=== PATIENT | male | born 1935 | race Caucasian/White ===

== ENCOUNTER 2016-11-18 10:06 | Inpatient (IN) | payer OTHER, MEDICARE ==
[2016-11-18] MEDS ORDERED: SODIUM CHLORIDE 0.9% 1,000 ML IV ONE (10:27)
--- NOTE | 2016-11-18 10:56 | XR ---
EXAMINATION TYPE: XR chest 1V portable DATE OF EXAM: 11/18/2016 COMPARISON: 11/18/2016 HISTORY: Shortness of breath and chest pain TECHNIQUE: Single frontal view of the chest is obtained. FINDINGS: Subsegmental changes at the left lung base. Heart enlarged. Atherosclerotic change aorta. Arthropathy of the shoulders and diffuse osteopenia. Underlying COPD noted. Tiny right pleural effusi on suspected. IMPRESSION: 1. Tiny bilateral effusion and basilar atelectasis or early infiltrate stable. 2. Correlate for COPD.
[2016-11-18 11:00] LABS: CH 30.7; CHCM 33.6; HDW 2.79; HGB 13.4 gm/dL (13.0-17.5); Immature Gran Flag Marked; MCH 30.9 pg (25.0-35.0); MCHC 33.5 g/dL (31.0-37.0); MCV 92.1 fL (80.0-100.0); Mean Platelet Volume 7.8; RBC 4.34 m/uL (4.30-5.90); RDW 14.7 % (11.5-15.5); WBC (Perox) 32.62
[2016-11-18] MEDS ORDERED: CEFEPIME 2 GM in SODIUM CHLORIDE 0.9% 50 ML IVPB STA (11:01)
[2016-11-18] MEDS ORDERED: IV VANCOMYCIN PER PHARMACY 1 EACH MISC MISCELLANE PRN (11:01)
[2016-11-18 11:07] LABS: Calcium 7.5 mg/dL (8.4-10.2); Total Bilirubin 0.6 mg/dL (0.2-1.3); Total Protein 5.8 g/dL (6.3-8.2)
[2016-11-18 11:12] LABS: WBC 31.3 k/uL (3.8-10.6)
[2016-11-18 11:14] LABS: Potassium 2.8 mmol/L (3.5-5.1)
[2016-11-18] MEDS: SODIUM CHLORIDE 0.9% 1,000 ML IV SCH ×2 (11:27→20:12)
[2016-11-18] MEDS ORDERED: VANCOMYCIN 2,250 MG in SODIUM CHLORIDE 0.9% 500 ML IVPB ONE (11:30)
[2016-11-18 11:31] LABS: Add Differential Manual Differential
[2016-11-18 11:35] LABS: Band Neutrophils % 13 %; Manual Review Performed; Metamyelocytes % 1 %; Nucleated Red Blood Cells 0 /100 WBC (0-0); Total Cells Counted 200; Toxic Granulation Present
[2016-11-18] MEDS ORDERED: ACETAMINOPHEN TAB 325 MG TAB PO PRN (12:01)
[2016-11-18] MEDS ORDERED: NALOXONE 0.4 MG/ML 1 ML VIAL IV PRN (12:01)
--- NOTE | 2016-11-18 12:01 | ED ---
General Adult HPI - General Chief complaint: Fever Stated complaint: Sepsis Time Seen by Provider: 11/18/16 10:18 Source: patient, EMS, RN notes reviewed Mode of arrival: EMS Limitations: no limitations - History of Present Illness Initial comments: 81-year-old male transferred with presumed UTI with sepsis. Patient had fever 104, he was found to have an elevated white blood cell count 20,000, hypotensive at transferring facility 80/50. Mild lactic acidosis 2.1. Patient did have hypokalemia 2.4 he received 40 units prior to transfer. Patient is unable to give history. He has no complaints. Does have history of dementia. He was given 1 g Rocephin prior to transfer. Total of 2.5 L of saline given with a third liter hanging at the time of arrival. - Related Data Allergies Allergy/AdvReac Type Severity Reaction Status Date / Time No Known Allergies Allergy Verified 11/18/16 10:25 Review of Systems ROS Statement: Those systems with pertinent positive or pertinent negative responses have been documented in the HPI. ROS Other: All systems not noted in ROS Statement are negative. Past Medical History Past Medical History: No Reported History Additional Past Medical History / Comment(s): patient unsure History of Any Multi-Drug Resistant Organisms: None Reported Past Surgical History: No Surgical Hx Reported Additional Past Surgical History / Comment(s): patient unsure Past Psychological History: No Psychological Hx Reported Smoking Status: Never smoker Past Alcohol Use History: Occasional General Exam Limitations: no limitations General appearance: alert, in no apparent distress Head exam: Present: atraumatic, normocephalic Eye exam: Present: normal appearance, PERRL ENT exam: Present: mucous membranes dry Neck exam: Present: full ROM. Absent: meningismus Respiratory exam: Present: normal lung sounds bilaterally. Absent: respiratory distress Cardiovascular Exam: Present: regular rate, normal rhythm GI/Abdominal exam: Present: soft. Absent: distended, tenderness, guarding Extremities exam: Present: normal inspection, normal capillary refill. Absent: pedal edema Neurological exam: Present: alert. Absent: motor sensory deficit Psychiatric exam: Present: normal affect, normal mood Skin exam: Present: warm, dry, intact. Absent: cyanosis, diaphoretic Course Vital Signs 11/18/16 11/18/16 11/18/16 10:08 10:48 10:59 Temperature 98.8 F Pulse Rate 94 65 61 Respiratory 20 18 18 Rate Blood Pressure 80/48 84/52 99/62 O2 Sat by Pulse 95 96 96 Oximetry 11/18/16 11:34 Temperature Pulse Rate 64 Respiratory 18 Rate Blood Pressure 114/61 O2 Sat by Pulse 96 Oximetry - Reevaluation(s) Reevaluation #1: 11/18/16 11:59 Patient will pressure improves with IV hydration. Mental status unchanged throughout stay in the emergency department Medical Decision Making - Medical Decision Making 81-year-old man transferred with presumed UTI and sepsis. Urinalysis did show 20 white blood cells and leukocyte esterase. Patient's blood pressure was initially 80/50. White blood cell count prior to transfer was 19,000. Repeat white blood cell count 31,000, potassium is 2.8 after replacement, and additional 40 mEq is ordered. Creatinine stable at 1.8. Lactic acid is improved 1.6 from 2.2. Patient received an additional liter of IV hydration. He is started on broad-spectrum antibiotics including cefepime and vancomycin. Blood pressure improves, most recent 114 systolic. Patient will be admitted for further treatment. Diagnosis: UTI with sepsis first clinical pneumonia with sepsis. Hypokalemia - Lab Data Result diagrams: 11/18/16 10:30 11/18/16 10:30 Lab Results 11/18/16 11/18/16 11/18/16 Range/Units 10:30 10:30 10:30 WBC 31.3 H* (3.8-10.6) k/uL RBC 4.34 (4.30-5.90) m/uL Hgb 13.4 (13.0-17.5) gm/dL Hct 40.0 (39.0-53.0) % MCV 92.1 (80.0-100.0) fL MCH 30.9 (25.0-35.0) pg MCHC 33.5 (31.0-37.0) g/dL RDW 14.7 (11.5-15.5) % Plt Count 211 (150-450) k/uL Neutrophils % (Manual) 80 % Band Neutrophils % 13 % Lymphocytes % (Manual) 2 % Monocytes % (Manual) 6 % Metamyelocytes % 1 % Neutrophils # (Manual) 29.10 H (1.3-7.7) k/uL Lymphocytes # (Manual) 0.63 L (1.0-4.8) k/uL Monocytes # (Manual) 1.88 H (0-1.0) k/uL Metamyelocytes # (Man) 0.31 H (0) k/uL Nucleated RBCs 0 (0-0) /100 WBC Manual Slide Review Performed Toxic Granulation Present Poikilocytosis (manual Present Sodium 139 (137-145) mmol/L Potassium 2.8 L* (3.5-5.1) mmol/L Chloride 104 (98-107) mmol/L Carbon Dioxide 26 (22-30) mmol/L Anion Gap 9 mmol/L BUN 24 H (9-20) mg/dL Creatinine 1.79 H (0.66-1.25) mg/dL Est GFR (MDRD) Af Amer 45 (>60 ml/min/1.73 sqM) Est GFR (MDRD) Non-Af 37 (>60 ml/min/1.73 sqM) Glucose 98 (74-99) mg/dL Plasma Lactic Acid Faraz 1.6 (0.7-2.0) mmol/L Calcium 7.5 L (8.4-10.2) mg/dL Magnesium (1.6-2.3) mg/dL Total Bilirubin 0.6 (0.2-1.3) mg/dL AST 71 H (17-59) U/L ALT 49 (21-72) U/L Alkaline Phosphatase 87 (38-126) U/L Total Protein 5.8 L (6.3-8.2) g/dL Albumin 2.6 L (3.5-5.0) g/dL 11/18/16 Range/Units 10:30 WBC (3.8-10.6) k/uL RBC (4.30-5.90) m/uL Hgb (13.0-17.5) gm/dL Hct (39.0-53.0) % MCV (80.0-100.0) fL MCH (25.0-35.0) pg MCHC (31.0-37.0) g/dL RDW (11.5-15.5) % Plt Count (150-450) k/uL Neutrophils % (Manual) % Band Neutrophils % % Lymphocytes % (Manual) % Monocytes % (Manual) % Metamyelocytes % % Neutrophils # (Manual) (1.3-7.7) k/uL Lymphocytes # (Manual) (1.0-4.8) k/uL Monocytes # (Manual) (0-1.0) k/uL Metamyelocytes # (Man) (0) k/uL Nucleated RBCs (0-0) /100 WBC Manual Slide Review Toxic Granulation Poikilocytosis (manual Sodium (137-145) mmol/L Potassium (3.5-5.1) mmol/L Chloride (98-107) mmol/L Carbon Dioxide (22-30) mmol/L Anion Gap mmol/L BUN (9-20) mg/dL Creatinine (0.66-1.25) mg/dL Est GFR (MDRD) Af Amer (>60 ml/min/1.73 sqM) Est GFR (MDRD) Non-Af (>60 ml/min/1.73 sqM) Glucose (74-99) mg/dL Plasma Lactic Acid Faraz (0.7-2.0) mmol/L Calcium (8.4-10.2) mg/dL Magnesium 1.7 (1.6-2.3) mg/dL Total Bilirubin (0.2-1.3) mg/dL AST (17-59) U/L ALT (21-72) U/L Alkaline Phosphatase (38-126) U/L Total Protein (6.3-8.2) g/dL Albumin (3.5-5.0) g/dL Critical Care Time Critical Care Time: Yes Total Critical Care Time: 45 Disposition Clinical Impression: Hypokalemia, Sepsis Disposition: ADMITTED IP TO THIS [facility] Condition: Stable Referrals: None,Stated [Primary Care Provider] - 1-2 days Decision to Admit Reason: Admit from EC Decision Date: 11/11/16 Decision Time: 12:01
[2016-11-18] MEDS: POTASSIUM CHLORIDE 10 MEQ, LIDOCAINE 2% INJ 10 MG in SODIUM CHLORIDE 0.9% 100 ML IVPB SCH ×4 (12:36→17:12)
[2016-11-18] MEDS: CEFEPIME 2 GM in SODIUM CHLORIDE 0.9% 50 ML IVPB SCH (19:07)
[2016-11-19 00:07] LABS: CH 30.5; CHCM 33.2; HCT 37.4 % (39.0-53.0); HDW 2.88; HGB 12.1 gm/dL (13.0-17.5); MCH 29.8 pg (25.0-35.0); MCHC 32.2 g/dL (31.0-37.0); MCV 92.5 fL (80.0-100.0); Mean Platelet Volume 7.9; RBC 4.04 m/uL (4.30-5.90); RDW 14.5 % (11.5-15.5)
[2016-11-19] MEDS: CEFEPIME 2 GM in SODIUM CHLORIDE 0.9% 50 ML IVPB SCH ×3 (00:12→20:38)
[2016-11-19] MEDS: MEMANTINE 10 MG TAB PO SCH ×3 (00:13→20:35)
[2016-11-19] MEDS: SERTRALINE 50 MG TAB PO SCH ×2 (00:13→20:35)
[2016-11-19] MEDS: ATORVASTATIN 10 MG TAB PO SCH ×2 (00:13→20:35)
[2016-11-19 00:14] LABS: WBC 28.7 k/uL (3.8-10.6)
[2016-11-19 00:18] LABS: Calcium 7.7 mg/dL (8.4-10.2); Magnesium 1.8 mg/dL (1.6-2.3)
[2016-11-19 00:19] LABS: Potassium 3.1 mmol/L (3.5-5.1)
--- NOTE | 2016-11-19 00:33 | P.HPIM ---
History of Present Illness H&P Date: 11/18/16 Chief Complaint: Fever and UTI transferred from outside hospital 81-year-old male with a known history of DEMENTIA Alzheimer's, history of renal cancer and heart wall replacement as well as splenectomy transferred with presumed UTI with sepsis. Patient was found to have fever at home by his daughter. Patient had fever 104. Patient was initially taken to outside hospital and was found to have acute urinary tract infection. Patient also having cough for the past 2 days with whitish to green sputum production. Patient does have urinary incontinence history. Patient was found to have an elevated white blood cell count 20,000, hypotensive at transferring facility 80/50. Mild lactic acidosis 2.1. Patient did have hypokalemia 2.4 he received 40 units prior to transfer. Patient is unable to give history due to underlying dementia. He has no complaints. He was given 1 g Rocephin prior to transfer. Total of 2.5 L of saline given with a third liter hanging at the time of arrival. Urine cultures were sent at that facility. Chest x-ray showed no acute process. But due to patient's cough and fever possible pneumonia was suspected as well. Patient was started on antibiotics. Social history was taken from his at bedside and his daughter. Review of Systems Complete review of systems could not be obtained from the patient Past Medical History Past Medical History: Cancer, Dementia, Hyperlipidemia, Hypertension, Thyroid Disorder Additional Past Medical History / Comment(s): Pt has hx of HTN but was taken off htn medication after having his aortic valve replaced, L kidney cancer with surgery, hypothyroid. History of Any Multi-Drug Resistant Organisms: None Reported Past Surgical History: No Surgical Hx Reported Additional Past Surgical History / Comment(s): 08/2015 Aortic valve replaced at [facility] in [place], L nephrectomy, spleenectomy, colonoscopies. Past Anesthesia/Blood Transfusion Reactions: No Reported Reaction Smoking Status: Never smoker - Past Family History Father Additional Family Medical History / Comment(s): Father during surgery for gastric ulcer repair at the age of 52yrs. Mother Family Medical History: CVA/TIA, Thyroid Disorder Additional Family Medical History / Comment(s): Mother had heart problems, hypothyroid, and of a massive CVA at the age of 72 yrs. Medications and Allergies Home Medications Medication Instructions Recorded Confirmed Type Aspirin 81 mg PO DAILY 11/18/16 11/18/16 History Donepezil [Aricept] 10 mg PO DAILY 11/18/16 11/18/16 History Hydrochlorothiazide [Hydrodiuril] 25 mg PO DAILY 11/18/16 11/18/16 History Levothyroxine Sodium [Synthroid] 75 mcg PO DAILY 11/18/16 11/18/16 History Memantine [Namenda] 10 mg PO BID 11/18/16 11/18/16 History Sertraline HCl [Zoloft] 50 mg PO HS 11/18/16 11/18/16 History Simvastatin 20 mg PO HS 11/18/16 11/18/16 History Allergies Allergy/AdvReac Type Severity Reaction Status Date / Time No Known Allergies Allergy Verified 11/18/16 13:15 Physical Exam Vitals: Vital Signs Temp Pulse Resp BP Pulse Ox 11/18/16 21:14 97.6 F 57 L 18 100/58 96 11/18/16 20:11 53 L 18 100/60 97 11/18/16 19:09 56 L 18 105/58 96 11/18/16 18:08 91 18 100/54 96 11/18/16 17:08 97.0 F L 55 L 16 102/58 96 11/18/16 15:46 56 L 18 109/60 95 11/18/16 14:35 98.0 F 55 L 18 119/53 95 11/18/16 13:16 98.2 F 60 18 117/69 95 11/18/16 12:41 62 18 131/63 95 11/18/16 11:34 64 18 114/61 96 11/18/16 10:59 61 18 99/62 96 11/18/16 10:48 65 18 84/52 96 11/18/16 10:08 98.8 F 94 20 80/48 95 Intake and Output 11/18/16 11/18/16 11/18/16 06:59 14:59 22:59 Output Total 250 Balance -250 Output: Urine 250 Other: Weight 122.924 kg Patient Weight 11/19/16 06:59 Weight 122.924 kg PHYSICAL EXAMINATION: Patient is lying in the bed comfortably, no acute distress, awake alert ... HEENT: Normocephalic. Neck is supple. Pupils reactive. Nostrils clear. Oral cavity is moist. Ears reveal no drainage. Neck reveals no JVD, carotid bruits, or thyromegaly. CHEST EXAMINATION: Trachea is central. Symmetrical expansion. Lung stevens clear to auscultation and percussion. Minimal rhonchi positive CARDIAC: Normal S1, S2 with no gallops. No murmurs ABDOMEN: Soft. Bowel sounds normal. No organomegaly. No abdominal bruits. Extremities reveal no edema. No clubbing or cyanosis Neurologically awake, alert with well-coordinated movements. Patient does have underlying dementia Skin: no rash or skin lesions Musculoskeletal: no joint swelling or deformity. Results CBC & Chem 7: 11/18/16 23:39 11/18/16 10:30 Labs: Abnormal Lab Results - Last 24 Hours (Table) 11/18/16 11/18/16 Range/Units 10:30 10:30 WBC 31.3 H* (3.8-10.6) k/uL Neutrophils # (Manual) 29.10 H (1.3-7.7) k/uL Lymphocytes # (Manual) 0.63 L (1.0-4.8) k/uL Monocytes # (Manual) 1.88 H (0-1.0) k/uL Metamyelocytes # (Man) 0.31 H (0) k/uL Potassium 2.8 L* (3.5-5.1) mmol/L BUN 24 H (9-20) mg/dL Creatinine 1.79 H (0.66-1.25) mg/dL Calcium 7.5 L (8.4-10.2) mg/dL AST 71 H (17-59) U/L Total Protein 5.8 L (6.3-8.2) g/dL Albumin 2.6 L (3.5-5.0) g/dL Microbiology - Last 24 Hours (Table) 11/18/16 10:32 Urine Culture - Preliminary Urine,Catheterized Thrombosis Risk Factor Assmnt - DVT/VTE Prophylaxis DVT/VTE Prophylaxis: Pharmacologic Prophylaxis ordered - Choose All That Apply Any of the Below Risk Factors Present?: Yes Each Factor Represents 1 point: Medical pt on bed rest, Obesity (BMI >25), Sepsis (< 1month) Other Risk Factors: Yes Each Risk Factor Represents 2 Points: Malignancy Each Risk Factor Represents 3 Points: Age 75 years or older Other congenital or acquired thrombophilia - If yes, enter type in comment: No Thrombosis Risk Factor Assessment Total Risk Factor Score: 8 Thrombosis Risk Factor Assessment Level: High Risk Assessment and Plan Plan: #1 severe sepsis secondary to urinary tract infection. Lactic acidosis improved #2 possible pneumonia #3 significant leukocytosis #3 acute kidney injury most likely prerenal #4 severe hypokalemia and hypomagnesemia on admission #4 history of urinary incontinence #5 Alzheimer's dementia #6 history of renal cancer and splenectomy. Currently solitary kidney #7 history of aortic valve replacement #8 DVT prophylaxis with heparin subcu Plan: Patient will be continued on IV fluids and broad-spectrum antibiotics in the form of vancomycin and cefepime. Follow up blood cultures and urine cultures. Continue to replace electrolyte. And continue to follow closely. prognosis is guarded. further recommendations based on the clinical course. Time with Patient: Greater than 30
[2016-11-19] MEDS ORDERED: Potassium Replacement Protocol 1 EACH MISC MISCELLANE PRN ×2 (03:00→07:49)
[2016-11-19] MEDS ORDERED: POTASSIUM CHLORIDE ER 20 MEQ TAB.ER PO SCH (03:00)
[2016-11-19] MEDS: SODIUM CHLORIDE 0.9% 1,000 ML IV SCH ×3 (03:54→12:28)
[2016-11-19] MEDS: LEVOTHYROXINE 75 MCG TAB PO SCH (06:29)
[2016-11-19 06:45] LABS: Basophils # (A) 0.1 k/uL (0-0.2); Basophils % (A) 1 %; CH 30.2; CHCM 32.4; Eosinophils # (A) 0.1 k/uL (0-0.7); Eosinophils % (A) 1 %; HCT 37.3 % (39.0-53.0); HDW 2.88; Luc % (Auto) 2; Lymphocytes # (A) 1.9 k/uL (1.0-4.8); Lymphocytes % (A) 8 %; MCH 30.2 pg (25.0-35.0); MCHC 32.2 g/dL (31.0-37.0); MCV 93.9 fL (80.0-100.0); Mean Platelet Volume 8.3; Monocytes # (A) 1.7 k/uL (0-1.0); Monocytes % (A) 7 %; Neutrophils % (A) 82 %; RBC 3.97 m/uL (4.30-5.90); RDW 14.5 % (11.5-15.5); WBC 24.3 k/uL (3.8-10.6); WBC (Perox) 24.48
[2016-11-19 07:00] LABS: Calcium 7.7 mg/dL (8.4-10.2); Potassium 3.3 mmol/L (3.5-5.1); Total Bilirubin 0.3 mg/dL (0.2-1.3); Total Protein 5.5 g/dL (6.3-8.2)
[2016-11-19] MEDS: ASPIRIN 81 MG PO SCH (08:49)
[2016-11-19] MEDS: HEPARIN SODIUM,PORCINE 5,000 UNIT/ML 1 ML VIAL SQ SCH ×3 (08:49→23:18)
[2016-11-19] MEDS: POTASSIUM CHLORIDE ER 20 MEQ TAB.ER PO SCH ×2 (08:49→12:16)
[2016-11-19] MEDS: VANCOMYCIN 2,000 MG in SODIUM CHLORIDE 0.9% 500 ML IVPB SCH (12:28)
--- NOTE | 2016-11-19 23:23 | P.PN ---
Subjective Principal diagnosis: Sepsis secondary to urinary tract infection 81-year-old male with a known history of DEMENTIA Alzheimer's, history of renal cancer and heart wall replacement as well as splenectomy transferred with presumed UTI with sepsis. Patient was found to have fever at home by his daughter. Patient had fever 104. Patient was initially taken to outside hospital and was found to have acute urinary tract infection. Patient also having cough for the past 2 days with whitish to green sputum production. Patient does have urinary incontinence history. Patient was found to have an elevated white blood cell count 20,000, hypotensive at transferring facility 80/50. Mild lactic acidosis 2.1. Patient did have hypokalemia 2.4 he received 40 units prior to transfer. Patient is unable to give history due to underlying dementia. He has no complaints. He was given 1 g Rocephin prior to transfer. Total of 2.5 L of saline given with a third liter hanging at the time of arrival. Urine cultures were sent at that facility. Chest x-ray showed no acute process. But due to patient's cough and fever possible pneumonia was suspected as well. Patient was started on antibiotics. Social history was taken from his at bedside and his daughter. On 11/19/2016 Patient is more awake today but could not provide history due to underlying dementia. Leukocytosis improved 24.3. Hypokalemia improved as well. Lactic is ptosis improved as well. Blood cultures and urine cultures show no growth so far. T-max was 98.8. No complaints of chest pain or worsening short of breath. Current medications reviewed. Objective - Vital Signs Vital signs: Vital Signs Temp 97.4 F L 11/19/16 16:00 Pulse 66 11/19/16 16:00 Resp 18 11/19/16 04:00 BP 110/61 11/19/16 16:00 Pulse Ox 95 11/19/16 16:00 Intake & Output 11/19/16 11/19/16 11/20/16 06:59 18:59 06:59 Intake Total 1150 2152 Output Total 525 Balance 625 2152 Weight 118 kg Intake: Intake, IV Titration 550 1500 Amount Cefepime 2 gm In Sodium 100 Chloride 0.9% 50 ml @ 100 mls/hr IVPB Q8HR [facility] Rx# :[id number] Sodium Chloride 0.9% 1, 450 1000 000 ml @ 150 mls/hr IV . Q6H40M [facility] Rx#:[id number] Vancomycin 2,000 mg In 500 Sodium Chloride 0.9% 500 ml @ 167 mls/hr IVPB Q48H [facility] Rx#:[id number] Oral 600 652 Output: Urine 525 Other: Voiding Method Indwelling Catheter Indwelling Catheter - Exam Patient is lying in the bed comfortably, no acute distress, awake alert ... HEENT: Normocephalic. Neck is supple. Pupils reactive. Nostrils clear. Oral cavity is moist. Ears reveal no drainage. Neck reveals no JVD, carotid bruits, or thyromegaly. CHEST EXAMINATION: Trachea is central. Symmetrical expansion. Lung stevens clear to auscultation and percussion. Minimal rhonchi and basilar crackles positive CARDIAC: Normal S1, S2 with no gallops. No murmurs ABDOMEN: Soft. Bowel sounds normal. No organomegaly. No abdominal bruits. Extremities reveal no edema. No clubbing or cyanosis Neurologically awake, alert with well-coordinated movements. Patient does have underlying dementia Skin: no rash or skin lesions Musculoskeletal: no joint swelling or deformity. - Labs CBC & Chem 7: 11/19/16 06:06 11/19/16 06:02 Labs: Abnormal Lab Results - Last 24 Hours (Table) 11/18/16 11/18/16 11/19/16 Range/Units 23:39 23:39 00:47 WBC 28.7 H* (3.8-10.6) k/uL RBC 4.04 L (4.30-5.90) m/uL Hgb 12.1 L (13.0-17.5) gm/dL Hct 37.4 L (39.0-53.0) % Neutrophils # (1.3-7.7) k/uL Monocytes # (0-1.0) k/uL Potassium 3.1 L 3.2 L (3.5-5.1) mmol/L Chloride 109 H (98-107) mmol/L Carbon Dioxide (22-30) mmol/L BUN 25 H (9-20) mg/dL Creatinine 1.50 H (0.66-1.25) mg/dL Glucose 105 H (74-99) mg/dL Calcium 7.7 L (8.4-10.2) mg/dL AST (17-59) U/L Total Protein (6.3-8.2) g/dL Albumin (3.5-5.0) g/dL 11/19/16 11/19/16 Range/Units 06:02 06:06 WBC 24.3 H (3.8-10.6) k/uL RBC 3.97 L (4.30-5.90) m/uL Hgb 12.0 L (13.0-17.5) gm/dL Hct 37.3 L (39.0-53.0) % Neutrophils # 20.0 H (1.3-7.7) k/uL Monocytes # 1.7 H (0-1.0) k/uL Potassium 3.3 L (3.5-5.1) mmol/L Chloride 110 H (98-107) mmol/L Carbon Dioxide 21 L (22-30) mmol/L BUN 25 H (9-20) mg/dL Creatinine 1.50 H (0.66-1.25) mg/dL Glucose 111 H (74-99) mg/dL Calcium 7.7 L (8.4-10.2) mg/dL AST 71 H (17-59) U/L Total Protein 5.5 L (6.3-8.2) g/dL Albumin 2.4 L (3.5-5.0) g/dL Microbiology - Last 24 Hours (Table) 11/18/16 10:32 Urine Culture - Final Urine,Catheterized 11/18/16 10:30 Blood Culture - Preliminary Blood No Growth after 24 hours Assessment and Plan Plan: #1 severe sepsis secondary to urinary tract infection. Lactic acidosis improved #2 possible pneumonia #3 significant leukocytosis #3 acute kidney injury most likely prerenal #4 severe hypokalemia and hypomagnesemia on admission #4 history of urinary incontinence #5 Alzheimer's dementia #6 history of renal cancer and splenectomy. Currently solitary kidney #7 history of aortic valve replacement #8 DVT prophylaxis with heparin subcu Plan: Patient will be continued on broad-spectrum antibiotics in the form of vancomycin and cefepime. Will hold IV fluids as the patient is tolerating well by mouth diet. Follow up blood cultures and urine cultures. Continue to replace electrolyte. And continue to follow closely. prognosis is guarded. Discussed with his at bedside. further recommendations based on the clinical course. Time with Patient: Greater than 30
[2016-11-20] MEDS ORDERED: POTASSIUM CHLORIDE ER 20 MEQ TAB.ER PO SCH (04:00)
[2016-11-20] MEDS: LEVOTHYROXINE 75 MCG TAB PO SCH (05:52)
[2016-11-20 07:04] LABS: Calcium 8.3 mg/dL (8.4-10.2); Potassium 4.2 mmol/L (3.5-5.1)
[2016-11-20 07:48] LABS: Basophils # (A) 0.1 k/uL (0-0.2); Basophils % (A) 0 %; CH 29.5; CHCM 30.9; Eosinophils # (A) 0.3 k/uL (0-0.7); Eosinophils % (A) 2 %; HCT 39.4 % (39.0-53.0); HDW 2.78; HGB 12.5 gm/dL (13.0-17.5); Hypochromasia Moderate; Luc # (Auto) 0.51; Luc % (Auto) 3; Lymphocytes # (A) 1.8 k/uL (1.0-4.8); Lymphocytes % (A) 11 %; MCH 30.6 pg (25.0-35.0); MCHC 31.8 g/dL (31.0-37.0); MCV 96.2 fL (80.0-100.0); Mean Platelet Volume 7.8; Monocytes # (A) 1.1 k/uL (0-1.0); Monocytes % (A) 7 %; Neutrophils # (A) 12.2 k/uL (1.3-7.7); Neutrophils % (A) 76 %; RDW 14.2 % (11.5-15.5); WBC (Perox) 16.59
[2016-11-20] MEDS: CEFEPIME 2 GM in SODIUM CHLORIDE 0.9% 50 ML IVPB SCH ×2 (10:08→22:19)
[2016-11-20] MEDS: ASPIRIN 81 MG PO SCH (10:08)
[2016-11-20] MEDS: HEPARIN SODIUM,PORCINE 5,000 UNIT/ML 1 ML VIAL SQ SCH ×2 (10:08→18:55)
[2016-11-20] MEDS: MEMANTINE 10 MG TAB PO SCH ×2 (10:08→22:19)
[2016-11-20] MEDS ORDERED: HEPARIN SODIUM,PORCINE 5,000 UNIT/ML 1 ML VIAL IV ONE (17:59)
[2016-11-20] MEDS ORDERED: HEPARIN SODIUM,PORCINE 5,000 UNIT/ML 1 ML VIAL IV PRN (17:59)
[2016-11-20] MEDS ORDERED: DILTIAZEM 125 MG in SODIUM CHLORIDE 0.9% 100 ML IV SCH (18:00)
[2016-11-20] MEDS ORDERED: HEPARIN SODIUM,PORCINE/D5W PMX 25,000 UNIT in DEXTROSE/WATER 1 500ML.BAG IV SCH (18:00)
[2016-11-20 18:51] LABS: Basophils # (A) 0.1 k/uL (0-0.2); Basophils % (A) 1 %; CH 30.4; Eosinophils # (A) 0.4 k/uL (0-0.7); Eosinophils % (A) 3 %; HCT 41.4 % (39.0-53.0); HDW 2.89; HGB 12.9 gm/dL (13.0-17.5); Hypochromasia Slight; Luc % (Auto) 3; Lymphocytes # (A) 1.8 k/uL (1.0-4.8); Lymphocytes % (A) 12 %; MCH 29.8 pg (25.0-35.0); MCHC 31.2 g/dL (31.0-37.0); MCV 95.6 fL (80.0-100.0); Mean Platelet Volume 8.1; Monocytes % (A) 7 %; Neutrophils # (A) 10.9 k/uL (1.3-7.7); Neutrophils % (A) 75 %; RBC 4.33 m/uL (4.30-5.90); RDW 14.7 % (11.5-15.5); WBC 14.6 k/uL (3.8-10.6); WBC (Perox) 14.56
[2016-11-20] MEDS: DILTIAZEM 125 MG in SODIUM CHLORIDE 0.9% 100 ML IV SCH (18:56)
[2016-11-20 19:01] LABS: INR 1.1 (<1.2); Prothrombin Time 10.9 sec (9.0-12.0)
[2016-11-20] MEDS: SERTRALINE 50 MG TAB PO SCH (22:19)
[2016-11-20] MEDS: ATORVASTATIN 10 MG TAB PO SCH (22:19)
[2016-11-21] MEDS: DILTIAZEM 125 MG in SODIUM CHLORIDE 0.9% 100 ML IV SCH (04:42)
[2016-11-21 06:10] LABS: Basophils # (A) 0.1 k/uL (0-0.2); Basophils % (A) 1 %; CH 29.6; CHCM 31.3; Eosinophils # (A) 0.5 k/uL (0-0.7); Eosinophils % (A) 4 %; HCT 39.5 % (39.0-53.0); HDW 2.89; HGB 12.6 gm/dL (13.0-17.5); Hypochromasia Slight; Luc # (Auto) 0.45; Luc % (Auto) 3; Lymphocytes # (A) 1.9 k/uL (1.0-4.8); Lymphocytes % (A) 14 %; MCH 30.2 pg (25.0-35.0); MCHC 31.8 g/dL (31.0-37.0); MCV 95.2 fL (80.0-100.0); Mean Platelet Volume 7.7; Monocytes # (A) 0.9 k/uL (0-1.0); Monocytes % (A) 6 %; Neutrophils # (A) 9.4 k/uL (1.3-7.7); Neutrophils % (A) 71 %; RBC 4.15 m/uL (4.30-5.90); RDW 14.4 % (11.5-15.5); WBC 13.2 k/uL (3.8-10.6); WBC (Perox) 13.45
[2016-11-21] MEDS: LEVOTHYROXINE 75 MCG TAB PO SCH (06:26)
[2016-11-21 06:36] LABS: Manual Review Performed
--- NOTE | 2016-11-21 09:01 | P.CRDCN ---
History of Present Illness Consult date: 11/21/16 History of present illness: This is a pleasant 81-year-old gentleman with no prior cardiac history who was admitted to the hospital with symptoms of fever and dysuria and was diagnosed with UTI/sepsis. We get involved in the care of the patient because during his hospitalization he developed an A. fib with RVR and started on Cardizem drip and converted to normal sinus mechanism. It seems a newly diagnosis atrial fibrillation. The patient according to him never seen any brand ambassador but he has some underlying dementia and he is a poor historian. Currently the patient has been maintaining normal sinus mechanism. He is maintaining normal blood pressure as well. He is on Cardizem IV and heparin IV at this point. I am going to DC the heparin IV and DC the Cardizem IV and start the patient on oral metoprolol as well as oral anticoagulation. We will obtain an echocardiogram was Doppler. And continue following up with him. Past Medical History Past Medical History: Cancer, Dementia, Hyperlipidemia, Hypertension, Thyroid Disorder Additional Past Medical History / Comment(s): Pt has hx of HTN but was taken off htn medication after having his aortic valve replaced, L kidney cancer with surgery, hypothyroid. History of Any Multi-Drug Resistant Organisms: None Reported Past Surgical History: No Surgical Hx Reported Additional Past Surgical History / Comment(s): 08/2015 Aortic valve replaced at [facility] in [place], L nephrectomy, spleenectomy, colonoscopies. Past Anesthesia/Blood Transfusion Reactions: No Reported Reaction Smoking Status: Never smoker - Past Family History Father Additional Family Medical History / Comment(s): Father during surgery for gastric ulcer repair at the age of 52yrs. Mother Family Medical History: CVA/TIA, Thyroid Disorder Additional Family Medical History / Comment(s): Mother had heart problems, hypothyroid, and of a massive CVA at the age of 72 yrs. Medications and Allergies Home Medications Medication Instructions Recorded Confirmed Type Aspirin 81 mg PO DAILY 11/18/16 11/18/16 History Donepezil [Aricept] 10 mg PO DAILY 11/18/16 11/18/16 History Hydrochlorothiazide [Hydrodiuril] 25 mg PO DAILY 11/18/16 11/18/16 History Levothyroxine Sodium [Synthroid] 75 mcg PO DAILY 11/18/16 11/18/16 History Memantine [Namenda] 10 mg PO BID 11/18/16 11/18/16 History Sertraline HCl [Zoloft] 50 mg PO HS 11/18/16 11/18/16 History Atorvastatin [Lipitor] 20 mg PO HS 11/19/16 11/19/16 History Allergies Allergy/AdvReac Type Severity Reaction Status Date / Time No Known Allergies Allergy Verified 11/18/16 13:15 Physical Exam Vitals: Vital Signs Temp Pulse Resp BP Pulse Ox 11/21/16 04:00 97.6 F 67 18 94/59 93 L 11/21/16 00:00 97.1 F L 110 H 18 102/65 93 L 11/20/16 20:40 98.0 F 111 H 18 115/64 93 L 11/20/16 17:08 158 H 18 107/80 94 L 11/20/16 16:00 158 H 18 113/62 94 L 11/20/16 12:00 65 16 105/58 90 L Intake and Output 11/20/16 11/21/16 11/21/16 22:59 06:59 14:59 Intake Total 247 364.336 240 Output Total 400 Balance 247 -35.664 240 Intake: Intake, IV Titration 10 364.336 Amount Diltiazem 125 mg In 10 97.667 Sodium Chloride 0.9% 100 ml @ 10 MG/HR 10 mls/hr IV .[id number] ADRIANA Rx#: [id number] Heparin Sodium,Porcine/ 266.669 D5w Pmx 25,000 unit In Dextrose/Water 1 500ml. bag @ 7.81 UNITS/KG/HR 20 mls/hr IV .Q24H ADRIANA Rx#: [id number] Oral 237 240 Output: Urine 400 Other: Voiding Method Urinal Urinal # Bowel Movements 1 Weight 126.1 kg - Constitutional General appearance: no acute distress - Respiratory Respiratory: bilateral: rales - Cardiovascular Rhythm: regular Heart sounds: normal: S1, S2 Abnormal Heart Sounds: systolic murmur Results 11/21/16 05:52 11/20/16 05:45 Coagulation 11/20/16 11/21/16 11/21/16 Range/Units 18:11 00:12 05:52 PT 10.9 (9.0-12.0) sec APTT 25.0 37.0 H 53.4 H (22.0-30.0) sec CBC 11/20/16 11/21/16 Range/Units 18:11 05:52 WBC 14.6 H 13.2 H (3.8-10.6) k/uL RBC 4.33 4.15 L (4.30-5.90) m/uL Hgb 12.9 L 12.6 L (13.0-17.5) gm/dL Hct 41.4 39.5 (39.0-53.0) % Plt Count 213 228 (150-450) k/uL Current Medications Generic Name Dose Route Start Last Admin Trade Name Freq PRN Reason Stop Dose Admin Acetaminophen 650 mg 11/18/16 12:01 Tylenol Tab PO Q6HR PRN Mild Pain or Fever > 100.5 Apixaban 2.5 mg 11/21/16 09:00 Eliquis PO BID ADRIANA Aspirin 81 mg 11/19/16 09:00 11/20/16 10:08 Aspirin PO 81 mg DAILY ADRIANA Administration Atorvastatin Calcium 10 mg 11/18/16 23:30 11/20/16 22:19 Lipitor PO 10 mg HS ADRIANA Administration Vancomycin HCl 2,000 mg/ 500 mls @ 167 mls/hr 11/19/16 12:00 11/19/16 12:28 Sodium Chloride IVPB 167 mls/hr Q48H ADRIANA Administration Cefepime HCl 2 gm/ Sodium 50 mls @ 100 mls/hr 11/19/16 20:00 11/20/16 22:19 Chloride IVPB 100 mls/hr Q12H ADRIANA Administration Levothyroxine Sodium 75 mcg 11/19/16 06:30 11/21/16 06:26 Synthroid PO 75 mcg 0630 ADRIANA Administration Memantine 10 mg 11/18/16 23:30 11/20/16 22:19 Namenda PO 10 mg BID ADRIANA Administration Metoprolol Tartrate 25 mg 11/21/16 09:00 Lopressor PO BID ADRIANA Miscellaneous Information 1 each 11/19/16 03:00 Potassium Per Protocol MISCELLANE DAILY PRN Per Protocol Protocol Naloxone HCl 0.2 mg 11/18/16 12:01 Narcan IV Q2M PRN Opioid Reversal Sertraline HCl 50 mg 11/18/16 23:30 11/20/16 22:19 Zoloft PO 50 mg HS ADRIANA Administration Intake and Output 11/20/16 11/21/16 11/21/16 22:59 06:59 14:59 Intake Total 247 364.336 240 Output Total 400 Balance 247 -35.664 240 Intake: Intake, IV Titration 10 364.336 Amount Diltiazem 125 mg In 10 97.667 Sodium Chloride 0.9% 100 ml @ 10 MG/HR 10 mls/hr IV .[id number] ADRIANA Rx#: [id number] Heparin Sodium,Porcine/ 266.669 D5w Pmx 25,000 unit In Dextrose/Water 1 500ml. bag @ 7.81 UNITS/KG/HR 20 mls/hr IV .Q24H ADRIANA Rx#: [id number] Oral 237 240 Output: Urine 400 Other: Voiding Method Urinal Urinal # Bowel Movements 1 Weight 126.1 kg 11/21/16 05:52 11/20/16 05:45 Assessment and Plan Plan: This is a pleasant 9-year-old gentleman who was admitted to the hospital with UTI/sepsis and developed an A. fib with RVR and converted to normal sinus mechanism. I am going to DC the heparin IV and DC the Cardizem IV and start the patient on oral metoprolol as well as oral anticoagulation. We will obtain an echocardiogram was Doppler. And continue following up with him.
[2016-11-21] MEDS: MEMANTINE 10 MG TAB PO SCH ×2 (09:07→21:01)
[2016-11-21] MEDS: ASPIRIN 81 MG PO SCH (09:07)
[2016-11-21] MEDS: CEFEPIME 2 GM in SODIUM CHLORIDE 0.9% 50 ML IVPB SCH ×2 (09:09→21:01)
[2016-11-21] MEDS: METOPROLOL TARTRATE 25 MG TAB PO SCH (10:09)
[2016-11-21] MEDS: APIXABAN 2.5 MG TABLET PO SCH ×2 (10:10→21:01)
[2016-11-21] MEDS: VANCOMYCIN 2,000 MG in SODIUM CHLORIDE 0.9% 500 ML IVPB SCH (14:14)
--- NOTE | 2016-11-21 15:32 | ECHOF ---
Referral Reason:a.fib MEASUREMENTS -------- HEIGHT: 172.7 cm WEIGHT: 126.1 kg BP: 113/56 IVSd: 1.2 cm (0.6 - 1.1) LVIDd: 4.3 cm (3.9 - 5.3) LVPWd: 1.4 cm (0.6 - 1.1) IVSs: 1.5 cm LVIDs: 2.2 cm LVPWs: 2.0 cm MV E Gerardo: 1.13 m/s MV DecT: 256 ms MV A Gerardo: 0.67 m/s MV E/A Ratio: 1.68 AV maxP.07 mmHg AV meanP.67 mmHg FINDINGS -------- Atrial fibrillation. This was a technically difficult study with suboptimal views. The left ventricular size is normal. There is mild concentric left ventricular hypertrophy. Overall left ventricular systolic function is normal with, an EF between 55 - 60 %. The RV was not well visualized. The left atrium was not well visualized. The right atrium was not well visualized. 1.5mg of Definity was utilized for enhancement of images Peak/mean gradient across the Aortic Valve is 30.07mmHg / 17.67mmHg. Pt had the TAVR procedure done The mitral valve leaflets are mildly thickened. Mild mitral regurgitation is present. Mild tricuspid regurgitation present. The right ventricular systolic pressure, as measured by Doppler, is {RVSP}. The pulmonic valve was not well visualized. CONCLUSIONS -------- 1. Atrial fibrillation. 2. Peak/mean gradient across the Aortic Valve is 30.07mmHg / 17.67mmHg. 3. Pt had the TAVR procedure done 4. The mitral valve leaflets are mildly thickened. 5. Mild mitral regurgitation is present. 6. Mild tricuspid regurgitation present. 7. The right ventricular systolic pressure, as measured by Doppler, is {RVSP}. 8. The pulmonic valve was not well visualized. 9. This was a technically difficult study with suboptimal views. 10. The left ventricular size is normal. 11. There is mild concentric left ventricular hypertrophy. 12. Overall left ventricular systolic function is normal with, an EF between 55 - 60 %. 13. The RV was not well visualized. 14. The left atrium was not well visualized. 15. The right atrium was not well visualized. 16. 1.5mg of Definity was utilized for enhancement of images ENGINEERING VICE PRESIDENT: Jerri Moore RDCS
[2016-11-21] MEDS: ATORVASTATIN 10 MG TAB PO SCH (21:01)
[2016-11-21] MEDS: SERTRALINE 50 MG TAB PO SCH (21:01)
[2016-11-22] MEDS: METOPROLOL TARTRATE 25 MG TAB PO SCH ×3 (01:54→20:26)
[2016-11-22] MEDS: LEVOTHYROXINE 75 MCG TAB PO SCH (06:34)
[2016-11-22] MEDS: APIXABAN 2.5 MG TABLET PO SCH ×2 (08:13→20:22)
[2016-11-22] MEDS: MEMANTINE 10 MG TAB PO SCH ×2 (08:13→20:22)
[2016-11-22] MEDS: ASPIRIN 81 MG PO SCH (08:13)
[2016-11-22] MEDS: CEFEPIME 2 GM in SODIUM CHLORIDE 0.9% 50 ML IVPB SCH ×2 (09:02→20:22)
[2016-11-22 09:15] LABS: Basophils # (A) 0.1 k/uL (0-0.2); Basophils % (A) 1 %; CH 29.7; CHCM 31.4; Eosinophils # (A) 0.6 k/uL (0-0.7); Eosinophils % (A) 5 %; HCT 40.5 % (39.0-53.0); HDW 2.85; HGB 12.8 gm/dL (13.0-17.5); Hypochromasia Slight; Luc # (Auto) 0.46; Luc % (Auto) 4; Lymphocytes # (A) 1.5 k/uL (1.0-4.8); Lymphocytes % (A) 12 %; MCH 30.2 pg (25.0-35.0); MCHC 31.7 g/dL (31.0-37.0); MCV 95.3 fL (80.0-100.0); Mean Platelet Volume 7.7; Monocytes # (A) 1.1 k/uL (0-1.0); Monocytes % (A) 8 %; Neutrophils # (A) 9.1 k/uL (1.3-7.7); Neutrophils % (A) 71 %; RBC 4.24 m/uL (4.30-5.90); RDW 14.4 % (11.5-15.5); WBC 12.9 k/uL (3.8-10.6); WBC (Perox) 13.06
[2016-11-22 09:33] LABS: Anion Gap 9 mmol/L; Blood Urea Nitrogen 20 mg/dL (9-20); Calcium 8.7 mg/dL (8.4-10.2); Carbon Dioxide 24 mmol/L (22-30); Chloride 110 mmol/L (98-107); Glucose 108 mg/dL (74-99); Non-African American GFR(MDRD) >60 (>60 ml/min/1.73 sqM); Potassium 4.4 mmol/L (3.5-5.1); Sodium 143 mmol/L (137-145)
[2016-11-22] MEDS: VANCOMYCIN 2,000 MG in SODIUM CHLORIDE 0.9% 500 ML IVPB SCH (14:06)
--- NOTE | 2016-11-22 14:45 | P.PN ---
Subjective Principal diagnosis: Paroxysmal atrial fibrillation This is a pleasant 81-year-old gentleman with no prior cardiac history who was admitted to the hospital with symptoms of fever and dysuria and was diagnosed with UTI/sepsis. We get involved in the care of the patient because during his hospitalization he developed an A. fib with RVR and started on Cardizem drip and converted to normal sinus mechanism. It seems a newly diagnosis atrial fibrillation. The patient according to him never seen any screen maker but he has some underlying dementia and he is a poor historian. Currently the patient has been maintaining normal sinus mechanism. He is maintaining normal blood pressure as well. The echocardiogram showed normal LV function. Objective - Vital Signs Vital signs: Vital Signs Temp 97.1 F L 11/22/16 07:00 Pulse 72 11/22/16 07:00 Resp 22 11/22/16 07:00 BP 108/60 11/22/16 07:00 Pulse Ox 96 11/22/16 07:00 Intake & Output 11/21/16 11/22/16 11/22/16 18:59 06:59 18:59 Intake Total 480 200 Balance 480 200 Intake: Oral 480 200 Other: Voiding Method Urinal Urinal Urinal Diaper Diaper # Voids 1 5 - Constitutional General appearance: Present: no acute distress - Respiratory Respiratory: bilateral: diminished - Cardiovascular Rhythm: regular - Labs CBC & Chem 7: 11/22/16 08:20 11/22/16 08:20 Labs: Abnormal Lab Results - Last 24 Hours (Table) 11/22/16 11/22/16 Range/Units 08:20 08:20 WBC 12.9 H (3.8-10.6) k/uL RBC 4.24 L (4.30-5.90) m/uL Hgb 12.8 L (13.0-17.5) gm/dL Neutrophils # 9.1 H (1.3-7.7) k/uL Monocytes # 1.1 H (0-1.0) k/uL Chloride 110 H (98-107) mmol/L Glucose 108 H (74-99) mg/dL Microbiology - Last 24 Hours (Table) 11/18/16 10:30 Blood Culture - Preliminary Blood No Growth after 96 hours Assessment and Plan Plan: This is a pleasant 81-year-old gentleman who was admitted to the hospital with UTI/sepsis and developed an A. fib with RVR and converted to normal sinus mechanism. The patient has been maintaining sinus mechanism. He is on metoprolol. He is on Eliquis. From the cardiac vascular standpoint overview, we'll follow-up with the patient on when necessary case
[2016-11-22] MEDS: SERTRALINE 50 MG TAB PO SCH (20:22)
[2016-11-22] MEDS: ATORVASTATIN 10 MG TAB PO SCH (20:22)
--- NOTE | 2016-11-23 00:13 | P.PN ---
Subjective Principal diagnosis: Sepsis secondary to urinary tract infection 81-year-old male with a known history of DEMENTIA Alzheimer's, history of renal cancer and heart wall replacement as well as splenectomy transferred with presumed UTI with sepsis. Patient was found to have fever at home by his daughter. Patient had fever 104. Patient was initially taken to outside hospital and was found to have acute urinary tract infection. Patient also having cough for the past 2 days with whitish to green sputum production. Patient does have urinary incontinence history. Patient was found to have an elevated white blood cell count 20,000, hypotensive at transferring facility 80/50. Mild lactic acidosis 2.1. Patient did have hypokalemia 2.4 he received 40 units prior to transfer. Patient is unable to give history due to underlying dementia. He has no complaints. He was given 1 g Rocephin prior to transfer. Total of 2.5 L of saline given with a third liter hanging at the time of arrival. Urine cultures were sent at that facility. Chest x-ray showed no acute process. But due to patient's cough and fever possible pneumonia was suspected as well. Patient was started on antibiotics. Social history was taken from his at bedside and his daughter. On 11/19/2016 Patient is more awake today but could not provide history due to underlying dementia. Leukocytosis improved 24.3. Hypokalemia improved as well. Lactic is ptosis improved as well. Blood cultures and urine cultures show no growth so far. T-max was 98.8. No complaints of chest pain or worsening short of breath. 11/22/2016 Patient is awake and alert. No complaints of chest pain or short of breath. Patient has been having cough this morning. No fever no chills. WBC count improved to 12.9. No fever no chills. No acute overnight issues. Patient is able to tolerate diet. Current medications reviewed. Objective - Vital Signs Vital signs: Vital Signs Temp 96.9 F L 11/22/16 15:00 Pulse 58 L 11/22/16 20:12 Resp 22 11/22/16 15:00 BP 100/55 11/22/16 20:12 Pulse Ox 97 11/22/16 15:00 Intake & Output 11/22/16 11/22/16 11/23/16 06:59 18:59 06:59 Intake Total 200 Balance 200 Intake: Oral 200 Other: Voiding Method Urinal Urinal Diaper Diaper # Voids 5 1 - Exam Patient is lying in the bed comfortably, no acute distress, awake alert ... HEENT: Normocephalic. Neck is supple. Pupils reactive. Nostrils clear. Oral cavity is moist. Ears reveal no drainage. Neck reveals no JVD, carotid bruits, or thyromegaly. CHEST EXAMINATION: Trachea is central. Symmetrical expansion. Lung stevens clear to auscultation and percussion. CARDIAC: Normal S1, S2 with no gallops. No murmurs ABDOMEN: Soft. Bowel sounds normal. No organomegaly. No abdominal bruits. Extremities reveal no edema. No clubbing or cyanosis Neurologically awake, alert with well-coordinated movements. Patient does have underlying dementia Skin: no rash or skin lesions Musculoskeletal: no joint swelling or deformity. - Labs CBC & Chem 7: 11/22/16 08:20 11/22/16 08:20 Labs: Abnormal Lab Results - Last 24 Hours (Table) 11/22/16 11/22/16 Range/Units 08:20 08:20 WBC 12.9 H (3.8-10.6) k/uL RBC 4.24 L (4.30-5.90) m/uL Hgb 12.8 L (13.0-17.5) gm/dL Neutrophils # 9.1 H (1.3-7.7) k/uL Monocytes # 1.1 H (0-1.0) k/uL Chloride 110 H (98-107) mmol/L Glucose 108 H (74-99) mg/dL Microbiology - Last 24 Hours (Table) 11/18/16 10:30 Blood Culture - Preliminary Blood No Growth after 96 hours Assessment and Plan Plan: #1 severe sepsis secondary to urinary tract infection. Lactic acidosis improved. Urine culture showed no growth #2 possible pneumonia #3 significant leukocytosis #3 acute kidney injury most likely prerenal #4 severe hypokalemia and hypomagnesemia on admission #4 history of urinary incontinence #5 Alzheimer's dementia #6 history of renal cancer and splenectomy. Currently solitary kidney #7 history of aortic valve replacement #8 DVT prophylaxis with heparin subcu Plan: Patient will be continued on broad-spectrum antibiotics in the form of vancomycin and cefepime. Will hold IV fluids as the patient is tolerating well by mouth diet. Follow up blood cultures and urine cultures. Negative so far. Continue to replace electrolyte. And continue to follow closely. prognosis is guarded. Discussed with his at bedside. further recommendations based on the clinical course. Anticipate discharged tomorrow. We will add Ensure Plus 3 times a day for nutritional supplement
--- NOTE | 2016-11-23 00:15 | P.PN ---
Subjective Principal diagnosis: Sepsis secondary to urinary tract infection 81-year-old male with a known history of DEMENTIA Alzheimer's, history of renal cancer and heart wall replacement as well as splenectomy transferred with presumed UTI with sepsis. Patient was found to have fever at home by his daughter. Patient had fever 104. Patient was initially taken to outside hospital and was found to have acute urinary tract infection. Patient also having cough for the past 2 days with whitish to green sputum production. Patient does have urinary incontinence history. Patient was found to have an elevated white blood cell count 20,000, hypotensive at transferring facility 80/50. Mild lactic acidosis 2.1. Patient did have hypokalemia 2.4 he received 40 units prior to transfer. Patient is unable to give history due to underlying dementia. He has no complaints. He was given 1 g Rocephin prior to transfer. Total of 2.5 L of saline given with a third liter hanging at the time of arrival. Urine cultures were sent at that facility. Chest x-ray showed no acute process. But due to patient's cough and fever possible pneumonia was suspected as well. Patient was started on antibiotics. Social history was taken from his at bedside and his daughter. On 11/19/2016 Patient is more awake today but could not provide history due to underlying dementia. Leukocytosis improved 24.3. Hypokalemia improved as well. Lactic is ptosis improved as well. Blood cultures and urine cultures show no growth so far. T-max was 98.8. No complaints of chest pain or worsening short of breath. 11/22/2016 Patient is awake and alert. No complaints of chest pain or short of breath. Patient has been having cough this morning. No fever no chills. WBC count improved to 12.9. No fever no chills. No acute overnight issues. Patient is able to tolerate diet. Current medications reviewed. Objective - Vital Signs Vital signs: Vital Signs Temp 98.1 F 11/21/16 15:00 Pulse 60 11/21/16 15:00 Resp 20 11/21/16 15:00 BP 94/56 11/21/16 15:00 Pulse Ox 95 11/21/16 15:00 Intake & Output 11/21/16 11/21/16 11/22/16 06:59 18:59 06:59 Intake Total 601.336 480 Output Total 400 Balance 201.336 480 Weight 126.1 kg Intake: Intake, IV Titration 364.336 Amount Diltiazem 125 mg In 97.667 Sodium Chloride 0.9% 100 ml @ 10 MG/HR 10 mls/hr IV .[id number] ADRIANA Rx#: [id number] Heparin Sodium,Porcine/ 266.669 D5w Pmx 25,000 unit In Dextrose/Water 1 500ml. bag @ 7.81 UNITS/KG/HR 20 mls/hr IV .Q24H ADRIANA Rx#: [id number] Oral 237 480 Output: Urine 400 Other: Voiding Method Urinal Urinal # Voids 1 # Bowel Movements 1 - Exam Patient is lying in the bed comfortably, no acute distress, awake alert ... HEENT: Normocephalic. Neck is supple. Pupils reactive. Nostrils clear. Oral cavity is moist. Ears reveal no drainage. Neck reveals no JVD, carotid bruits, or thyromegaly. CHEST EXAMINATION: Trachea is central. Symmetrical expansion. Lung stevens clear to auscultation and percussion. CARDIAC: Normal S1, S2 with no gallops. No murmurs ABDOMEN: Soft. Bowel sounds normal. No organomegaly. No abdominal bruits. Extremities reveal no edema. No clubbing or cyanosis Neurologically awake, alert with well-coordinated movements. Patient does have underlying dementia Skin: no rash or skin lesions Musculoskeletal: no joint swelling or deformity. - Labs CBC & Chem 7: 11/22/16 08:20 11/22/16 08:20 Labs: Abnormal Lab Results - Last 24 Hours (Table) 11/21/16 11/21/16 11/21/16 Range/Units 00:12 05:52 05:52 WBC 13.2 H (3.8-10.6) k/uL RBC 4.15 L (4.30-5.90) m/uL Hgb 12.6 L (13.0-17.5) gm/dL Neutrophils # 9.4 H (1.3-7.7) k/uL APTT 37.0 H 53.4 H (22.0-30.0) sec Microbiology - Last 24 Hours (Table) 11/18/16 10:30 Blood Culture - Preliminary Blood No Growth after 72 hours Assessment and Plan Plan: #1 severe sepsis secondary to urinary tract infection. Lactic acidosis improved. Urine culture showed no growth #2 possible pneumonia #3 new onset A. fib with RVR and converted to normal sinus mechanism.on metoprolol and eliquis #3 significant leukocytosis. improving. #3 acute kidney injury most likely prerenal #4 severe hypokalemia and hypomagnesemia on admission #4 history of urinary incontinence #5 Alzheimer's dementia #6 history of renal cancer and splenectomy. Currently solitary kidney #7 history of aortic valve replacement #8 DVT prophylaxis with heparin subcu Plan: Patient will be continued on broad-spectrum antibiotics in the form of vancomycin and cefepime. Will hold IV fluids as the patient is tolerating well by mouth diet. Follow up blood cultures and urine cultures. Negative so far. Continue to replace electrolyte. And continue to follow closely. prognosis is guarded. Discussed with his at bedside. further recommendations based on the clinical course. Anticipate discharged tomorrow. We will add Ensure Plus 3 times a day for nutritional supplement
[2016-11-23] MEDS: LEVOTHYROXINE 75 MCG TAB PO SCH (06:17)
[2016-11-23 09:32] LABS: Basophils # (A) 0.1 k/uL (0-0.2); Basophils % (A) 1 %; CH 30.4; CHCM 32.5; Eosinophils # (A) 0.6 k/uL (0-0.7); Eosinophils % (A) 5 %; HCT 39.2 % (39.0-53.0); HDW 2.86; HGB 12.4 gm/dL (13.0-17.5); Luc # (Auto) 0.38; Luc % (Auto) 3; Lymphocytes # (A) 1.4 k/uL (1.0-4.8); Lymphocytes % (A) 11 %; MCH 29.7 pg (25.0-35.0); MCHC 31.5 g/dL (31.0-37.0); MCV 94.3 fL (80.0-100.0); Mean Platelet Volume 7.6; Monocytes % (A) 8 %; Neutrophils # (A) 8.8 k/uL (1.3-7.7); Neutrophils % (A) 72 %; RBC 4.16 m/uL (4.30-5.90); RDW 15.5 % (11.5-15.5); WBC 12.2 k/uL (3.8-10.6); WBC (Perox) 12.21
[2016-11-23] MEDS: CEFEPIME 2 GM in SODIUM CHLORIDE 0.9% 50 ML IVPB SCH ×2 (09:57→22:39)
[2016-11-23] MEDS: ASPIRIN 81 MG PO SCH (09:58)
[2016-11-23] MEDS: APIXABAN 2.5 MG TABLET PO SCH ×2 (09:58→22:37)
[2016-11-23] MEDS: METOPROLOL TARTRATE 25 MG TAB PO SCH ×2 (09:58→22:37)
[2016-11-23] MEDS: MEMANTINE 10 MG TAB PO SCH ×2 (09:58→22:37)
[2016-11-23] MEDS ORDERED: VANCOMYCIN TROUGH DUE 1 EACH MISC MISCELLANE ONE (12:00)
[2016-11-23] MEDS: VANCOMYCIN 2,000 MG in SODIUM CHLORIDE 0.9% 500 ML IVPB SCH (12:43)
[2016-11-23] MEDS: LEVOFLOXACIN 750 MG TAB PO SCH (14:48)
[2016-11-23 15:16] VITALS: BMI 39.9
[2016-11-23] MEDS: ATORVASTATIN 10 MG TAB PO SCH (22:37)
[2016-11-23] MEDS: SERTRALINE 50 MG TAB PO SCH (23:22)
--- NOTE | 2016-11-23 23:59 | P.PN ---
Subjective Principal diagnosis: Sepsis secondary to urinary tract infection 81-year-old male with a known history of DEMENTIA Alzheimer's, history of renal cancer and heart wall replacement as well as splenectomy transferred with presumed UTI with sepsis. Patient was found to have fever at home by his daughter. Patient had fever 104. Patient was initially taken to outside hospital and was found to have acute urinary tract infection. Patient also having cough for the past 2 days with whitish to green sputum production. Patient does have urinary incontinence history. Patient was found to have an elevated white blood cell count 20,000, hypotensive at transferring facility 80/50. Mild lactic acidosis 2.1. Patient did have hypokalemia 2.4 he received 40 units prior to transfer. Patient is unable to give history due to underlying dementia. He has no complaints. He was given 1 g Rocephin prior to transfer. Total of 2.5 L of saline given with a third liter hanging at the time of arrival. Urine cultures were sent at that facility. Chest x-ray showed no acute process. But due to patient's cough and fever possible pneumonia was suspected as well. Patient was started on antibiotics. Social history was taken from his at bedside and his daughter. On 11/19/2016 Patient is more awake today but could not provide history due to underlying dementia. Leukocytosis improved 24.3. Hypokalemia improved as well. Lactic is ptosis improved as well. Blood cultures and urine cultures show no growth so far. T-max was 98.8. No complaints of chest pain or worsening short of breath. 11/22/2016 Patient is awake and alert. No complaints of chest pain or short of breath. Patient has been having cough this morning. No fever no chills. WBC count improved to 12.9. No fever no chills. No acute overnight issues. Patient is able to tolerate diet. 11/21/2016 Patient denies any complaints of chest pain or short of breath. Symptomatically much improved. Otherwise patient is not ambulatory by himself without support. PT OT is following and possible transfer to rehab likely tomorrow. Current medications reviewed. Objective - Vital Signs Vital signs: Vital Signs Temp 96.8 F L 11/23/16 15:00 Pulse 72 11/23/16 15:00 Resp 18 11/23/16 15:00 BP 112/57 11/23/16 15:00 Pulse Ox 91 L 11/23/16 15:00 Intake & Output 11/23/16 11/23/16 11/24/16 06:59 18:59 06:59 Intake Total 50 600 Balance 50 600 Weight 119 kg 119 kg Intake: Oral 50 600 Other: Voiding Method Urinal Urinal Diaper Diaper # Voids 2 1 - Exam Patient is lying in the bed comfortably, no acute distress, awake alert ... HEENT: Normocephalic. Neck is supple. Pupils reactive. Nostrils clear. Oral cavity is moist. Ears reveal no drainage. Neck reveals no JVD, carotid bruits, or thyromegaly. CHEST EXAMINATION: Trachea is central. Symmetrical expansion. Lung stevens clear to auscultation and percussion. CARDIAC: Normal S1, S2 with no gallops. No murmurs ABDOMEN: Soft. Bowel sounds normal. No organomegaly. No abdominal bruits. Extremities reveal no edema. No clubbing or cyanosis Neurologically awake, alert with well-coordinated movements. Patient does have underlying dementia Skin: no rash or skin lesions Musculoskeletal: no joint swelling or deformity. - Labs CBC & Chem 7: 11/23/16 09:12 11/22/16 08:20 Labs: Abnormal Lab Results - Last 24 Hours (Table) 11/23/16 Range/Units 09:12 WBC 12.2 H (3.8-10.6) k/uL RBC 4.16 L (4.30-5.90) m/uL Hgb 12.4 L (13.0-17.5) gm/dL Neutrophils # 8.8 H (1.3-7.7) k/uL Microbiology - Last 24 Hours (Table) 11/18/16 10:30 Blood Culture - Preliminary Blood No Growth after 120 hours Assessment and Plan Plan: #1 severe sepsis secondary to urinary tract infection. Lactic acidosis improved. Urine culture showed no growth #2 possible pneumonia #3 new onset A. fib with RVR and converted to normal sinus mechanism.on metoprolol and eliquis #3 significant leukocytosis. improving. #3 acute kidney injury most likely prerenal #4 severe hypokalemia and hypomagnesemia on admission #4 history of urinary incontinence #5 Alzheimer's dementia #6 history of renal cancer and splenectomy. Currently solitary kidney #7 history of aortic valve replacement #8 DVT prophylaxis with heparin subcu Plan: Patient was on antibiotics in the form of vancomycin and cefepime. Changed to Levaquin. Will hold IV fluids as the patient is tolerating well by mouth diet. Follow up blood cultures and urine cultures Negative so far. Continue to replace electrolyte. And continue to follow closely. prognosis is guarded. Discussed with his at bedside. Ensure Plus 3 times a day for nutritional supplement. PTOT consulted for rehab transfer. further recommendations based on the clinical course. Anticipate discharged tomorrow.
--- NOTE | 2016-11-24 00:01 | P.PN ---
Subjective Principal diagnosis: Sepsis secondary to urinary tract infection 81-year-old male with a known history of DEMENTIA Alzheimer's, history of renal cancer and heart wall replacement as well as splenectomy transferred with presumed UTI with sepsis. Patient was found to have fever at home by his daughter. Patient had fever 104. Patient was initially taken to outside hospital and was found to have acute urinary tract infection. Patient also having cough for the past 2 days with whitish to green sputum production. Patient does have urinary incontinence history. Patient was found to have an elevated white blood cell count 20,000, hypotensive at transferring facility 80/50. Mild lactic acidosis 2.1. Patient did have hypokalemia 2.4 he received 40 units prior to transfer. Patient is unable to give history due to underlying dementia. He has no complaints. He was given 1 g Rocephin prior to transfer. Total of 2.5 L of saline given with a third liter hanging at the time of arrival. Urine cultures were sent at that facility. Chest x-ray showed no acute process. But due to patient's cough and fever possible pneumonia was suspected as well. Patient was started on antibiotics. Social history was taken from his at bedside and his daughter. On 11/19/2016 Patient is more awake today but could not provide history due to underlying dementia. Leukocytosis improved 24.3. Hypokalemia improved as well. Lactic is ptosis improved as well. Blood cultures and urine cultures show no growth so far. T-max was 98.8. No complaints of chest pain or worsening short of breath. 11/20/2016 Patient is awake and alert. No complaints of chest pain or short of breath. Patient has been having cough this morning. No fever no chills. WBC count improved No fever no chills. No acute overnight issues. Patient is able to tolerate diet. Current medications reviewed. Objective - Vital Signs Vital signs: Vital Signs Temp 96.9 F L 11/21/16 12:00 Pulse 61 11/21/16 12:00 Resp 20 11/21/16 12:00 BP 121/58 11/21/16 12:00 Pulse Ox 95 11/21/16 12:00 Intake & Output 11/20/16 11/21/16 11/21/16 18:59 06:59 18:59 Intake Total 534 601.336 240 Output Total 700 400 Balance -166 201.336 240 Weight 126.1 kg Intake: Intake, IV Titration 60 364.336 Amount Cefepime 2 gm In Sodium 50 Chloride 0.9% 50 ml @ 100 mls/hr IVPB Q12H [facility] Rx# :[id number] Diltiazem 125 mg In 10 97.667 Sodium Chloride 0.9% 100 ml @ 10 MG/HR 10 mls/hr IV .[id number] [facility] Rx#: [id number] Heparin Sodium,Porcine/ 266.669 D5w Pmx 25,000 unit In Dextrose/Water 1 500ml. bag @ 7.81 UNITS/KG/HR 20 mls/hr IV .Q24H [facility] Rx#: [id number] Oral 474 237 240 Output: Urine 700 400 Other: Voiding Method Urinal Urinal Urinal # Voids 1 # Bowel Movements 1 - Exam Patient is lying in the bed comfortably, no acute distress, awake alert ... HEENT: Normocephalic. Neck is supple. Pupils reactive. Nostrils clear. Oral cavity is moist. Ears reveal no drainage. Neck reveals no JVD, carotid bruits, or thyromegaly. CHEST EXAMINATION: Trachea is central. Symmetrical expansion. Lung stevens clear to auscultation and percussion. CARDIAC: Normal S1, S2 with no gallops. No murmurs ABDOMEN: Soft. Bowel sounds normal. No organomegaly. No abdominal bruits. Extremities reveal no edema. No clubbing or cyanosis Neurologically awake, alert with well-coordinated movements. Patient does have underlying dementia Skin: no rash or skin lesions Musculoskeletal: no joint swelling or deformity. - Labs CBC & Chem 7: 11/23/16 09:12 11/22/16 08:20 Labs: Abnormal Lab Results - Last 24 Hours (Table) 11/20/16 11/21/16 11/21/16 Range/Units 18:11 00:12 05:52 WBC 14.6 H 13.2 H (3.8-10.6) k/uL RBC 4.15 L (4.30-5.90) m/uL Hgb 12.9 L 12.6 L (13.0-17.5) gm/dL Neutrophils # 10.9 H 9.4 H (1.3-7.7) k/uL APTT 37.0 H (22.0-30.0) sec 11/21/16 Range/Units 05:52 WBC (3.8-10.6) k/uL RBC (4.30-5.90) m/uL Hgb (13.0-17.5) gm/dL Neutrophils # (1.3-7.7) k/uL APTT 53.4 H (22.0-30.0) sec Microbiology - Last 24 Hours (Table) 11/18/16 10:30 Blood Culture - Preliminary Blood No Growth after 72 hours Assessment and Plan Plan: #1 severe sepsis secondary to urinary tract infection. Lactic acidosis improved. Urine culture showed no growth #2 possible pneumonia #3 new onset A. fib with RVR and converted to normal sinus mechanism.on metoprolol and eliquis #3 significant leukocytosis. improving. #3 acute kidney injury most likely prerenal #4 severe hypokalemia and hypomagnesemia on admission #4 history of urinary incontinence #5 Alzheimer's dementia #6 history of renal cancer and splenectomy. Currently solitary kidney #7 history of aortic valve replacement #8 DVT prophylaxis with heparin subcu Plan: Patient will be Nude on antibiotics in the form of vancomycin and cefepime. Will hold IV fluids as the patient is tolerating well by mouth diet. Follow up blood cultures and urine cultures Negative so far. Continue to replace electrolyte. And continue to follow closely. prognosis is guarded. Discussed with his at bedside. further recommendations based on the clinical course. Anticipate discharged tomorrow.
[2016-11-24 03:19] LABS: Glucose,Whole Blood 93 mg/dL (75-99)
[2016-11-24] MEDS: LEVOTHYROXINE 75 MCG TAB PO SCH (06:47)
[2016-11-24] MEDS: CEFEPIME 2 GM in SODIUM CHLORIDE 0.9% 50 ML IVPB SCH (08:13)
[2016-11-24] MEDS: METOPROLOL TARTRATE 25 MG TAB PO SCH (08:14)
[2016-11-24] MEDS: MEMANTINE 10 MG TAB PO SCH (08:14)
[2016-11-24] MEDS: ASPIRIN 81 MG PO SCH (08:14)
[2016-11-24] MEDS: APIXABAN 2.5 MG TABLET PO SCH (08:14)
[2016-11-24] MEDS: LEVOFLOXACIN 750 MG TAB PO SCH (08:14)
[2016-11-24 08:20] VITALS: BP 129/66; PULSE 76; RESP 18; TEMP 97.1
[2016-11-24 10:29] LABS: Basophils # (A) 0.1 k/uL (0-0.2); Basophils % (A) 1 %; CHCM 32.1; Eosinophils # (A) 0.6 k/uL (0-0.7); Eosinophils % (A) 5 %; HCT 40.7 % (39.0-53.0); HDW 2.84; HGB 13.1 gm/dL (13.0-17.5); Hypochromasia Slight; Luc # (Auto) 0.42; Luc % (Auto) 3; Lymphocytes # (A) 1.5 k/uL (1.0-4.8); Lymphocytes % (A) 12 %; MCH 30.2 pg (25.0-35.0); MCHC 32.1 g/dL (31.0-37.0); MCV 94.2 fL (80.0-100.0); Mean Platelet Volume 7.8; Monocytes # (A) 1.2 k/uL (0-1.0); Monocytes % (A) 9 %; Neutrophils % (A) 70 %; RBC 4.32 m/uL (4.30-5.90); RDW 14.9 % (11.5-15.5); WBC 12.8 k/uL (3.8-10.6); WBC (Perox) 13.55
[2016-11-24 12:02] LABS: Anion Gap 8 mmol/L; Blood Urea Nitrogen 17 mg/dL (9-20); Calcium 8.9 mg/dL (8.4-10.2); Carbon Dioxide 25 mmol/L (22-30); Chloride 108 mmol/L (98-107); Glucose 92 mg/dL (74-99); Non-African American GFR(MDRD) >60 (>60 ml/min/1.73 sqM); Potassium 4.5 mmol/L (3.5-5.1); Sodium 141 mmol/L (137-145)
== END 2016-11-24 13:46 | disposition home or self-care (01) | DRG 871 ==
LOC: EC 10:06 → 6SEL 12:02 → 4MS4W 11-21 12:34
PROVIDERS: ADMIT Internal Medicine; ATTEND Internal Medicine
DX: A41.9 Sepsis, unspecified organism (principal); J18.9 Pneumonia, unspecified organism; N17.9 Acute kidney failure, unspecified; N39.0 Urinary tract infection, site not specified; G30.9 Alzheimer's disease, unspecified; I48.0 Paroxysmal atrial fibrillation; E83.42 Hypomagnesemia; F02.80 Dementia in other diseases classified elsewhere, unspecified severity, without behavioral disturbance, psychotic disturbance, mood disturbance, and anxiety; E03.9 Hypothyroidism, unspecified; E78.5 Hyperlipidemia, unspecified; E87.6 Hypokalemia; I10 Essential (primary) hypertension; R32 Unspecified urinary incontinence; R65.20 Severe sepsis without septic shock; Z79.82 Long term (current) use of aspirin; Z79.899 Other long term (current) drug therapy; Z95.2 Presence of prosthetic heart valve; Z85.528 Personal history of other malignant neoplasm of kidney; Z90.5 Acquired absence of kidney
CPT/HCPCS: 36415; 51702; 71010; 80048; 80053; 83605; 83735; 84132; 85025; 85027; 85610; 85730; 87040; 87086; 93306; 96361; 96365; 96366; 96367; 96368; 99291